=== PATIENT | male | born 1995 ===

== ENCOUNTER 2025-04-04 19:03 | Emergency (ER) | payer OTHER ==
[~2025-04-04] VITALS: Ht 162.6 cm; Wt 70.3 kg
[~2025-04-04 19:03] MED LIST: CEPH500 PO; HYDACE5 PO; IBUP600 PO
[2025-04-04 19:27] VITALS: BP 130/90
[2025-04-04] MEDS ORDERED: Ketorolac Tromethamine 30mg Vial IM ONE (20:20)
[2025-04-04] MEDS ORDERED: TiZANidine HCl 4 MG Tab PO ONE (20:20)
[2025-04-04] MEDS ORDERED: Lidocaine 4% 1 Patch TOP ONE (20:20)
[2025-04-04] MEDS ORDERED: HYDR1TAB94 PO (20:39)
[2025-04-04] MEDS ORDERED: Diclofenac Sodium 100 GM TUBE TOP ONE (20:45)
[2025-04-04] MEDS ORDERED: HYDROcodone 5-APAP 325 TAB PO ONE (20:45)
== END 2025-04-04 20:58 | disposition home or self-care (01) ==
LOC: ER 19:03
DX: S43.102A Unspecified dislocation of left acromioclavicular joint, initial encounter (principal); W10.9XXA Fall (on) (from) unspecified stairs and steps, initial encounter; Z79.899 Other long term (current) drug therapy
CPT/HCPCS: 73030; 96372; 99283-25; A9270; J1885

== ENCOUNTER 2025-07-16 20:25 | Emergency (ER) | payer OTHER ==
[~2025-07-16] VITALS: Ht 162.6 cm; Wt 68.0 kg
[~2025-07-16 20:25] MED LIST changes: +HYDR1TAB94 PO
[2025-07-16 20:41] VITALS: BP 120/89
== END 2025-07-16 21:25 | disposition home or self-care (01) ==
LOC: ER 20:25
DX: T63.441A Toxic effect of venom of bees, accidental (unintentional), initial encounter (principal); R22.31 Localized swelling, mass and lump, right upper limb; Z79.899 Other long term (current) drug therapy
CPT/HCPCS: 96374; 99282-25; J2919

== ENCOUNTER → 2025-08-23 | Outpatient (CLI) | payer OTHER ==
[2025-08-23 15:32] LABS: BASOPHILS ABSOLUTE AUTO 0.03 K/mm3 (0.00-0.23); BASOPHILS PERCENT AUTO 0 % (0-2); EOSINOPHILS ABSOLUTE AUTO 0.17 K/mm3 (0.00-0.68); EOSINOPHILS PERCENT AUTO 2 % (0-6); Hematocrit 42.6 % (37.0-53.0); Hemoglobin 15.5 g/dL (13.5-17.5); IMMATURE GRAN ABSOLUTE AUTO 0.02 K/mm3 (0.00-0.10); IMMATURE GRAN PERCENT AUTO 0 % (0-1); LYMPHOCYTES ABSOLUTE AUTO 0.65 K/mm3 (0.84-5.20); LYMPHOCYTES PERCENT AUTO 9 % (21-46); MONOCYTES ABSOLUTE AUTO 0.30 K/mm3 (0.16-1.47); MONOCYTES PERCENT AUTO 4 % (4-13); Mean Corpuscular HGB Conc 36.4 g/dL (31.5-36.5); Mean Corpuscular Volume 95 fL (80-100); NEUTROPHILS ABSOLUTE AUTO 5.99 K/mm3 (1.96-9.15); NEUTROPHILS PERCENT AUTO 84 % (41-73); NRBC ABSOLUTE 0.00 K/mm3 (0.00-0.02); NRBC Auto 0.0 /100 WBC (0.0-0.2); Platelet Count 237 K/mm3 (150-400); RDW Coefficient Variation 11.9 % (11.7-14.2); RDW Standard Deviation 41.5 fL (35.1-46.3)
[2025-08-23 16:41] LABS: Anion Gap 14.0 mmol/L (3-11); Blood Urea Nitrogen 14.0 mg/dL (8-24); CO2, Blood 27.0 mmol/L (21-32); Calcium, Blood 9.1 mg/dL (8.5-10.1); Chloride, Blood 93.0 mmol/L (98-108); Creatinine, Blood 0.82 mg/dL (0.60-1.20); Glucose, Blood 296.0 mg/dL (70-99); Magnesium, Blood 2.0 mg/dL (1.6-2.4); Potassium, Blood 3.6 mmol/L (3.5-5.5); Sodium, Blood 130.0 mmol/L (136-145); Thyroid Stimulating Hormone 0.76 uIU/mL (0.360-4.800)
== END ==
LOC: LAB SHORT 10:00 → LAB 10:00
PROVIDERS: Hospitalist
DX: R00.0 Tachycardia, unspecified (principal)
CPT/HCPCS: 80048; 82533; 83735; 84443; 85025